=== PATIENT | female | born 1990 | race Caucasian/White ===

== ENCOUNTER 2023-07-16 19:42 | Emergency (ER) | payer OTHER ==
[2023-07-16 19:54] VITALS: BP 147/92; PULSE 90; RESP 18; TEMP 98.2; BMI 34.3
== END 2023-07-17 00:03 | disposition home or self-care (01) ==
LOC: JER 19:42
DX: M79.661 Pain in right lower leg (principal); M71.21 Synovial cyst of popliteal space [Baker], right knee
CPT/HCPCS: 93971-TC; 99284-25